=== PATIENT | male | born 1960 | race Hispanic/Latino ===

== ENCOUNTER 2024-06-05 12:30 | Outpatient (RCR) | payer OTHER, SELFPAY | END 2024-06-05 14:30 | LOC: CAR 12:30 | PROVIDERS: Referring Provider Physician Assistant; Visit Provider Physician Assistant | DX: Z95.1 Presence of aortocoronary bypass graft (principal); I25.10 Atherosclerotic heart disease of native coronary artery without angina pectoris | CPT/HCPCS: 93798 ==